=== PATIENT | female | born 2000 | race Caucasian/White ===

== ENCOUNTER 2023-06-18 22:53 | Emergency (ER) | payer BC, SELFPAY ==
[2023-06-18 22:57] VITALS: BP 193/98; PULSE 107; RESP 20; TEMP 36.8; O2SAT 100
[2023-06-18 23:16] VITALS: BP 124/82; O2SAT 99
--- NOTE | 2023-06-18 23:35 | ED.GENADULT ---
HPI - General Adult General Chief complaint: Headache Stated complaint: headache Time Seen by Provider: 06/18/23 23:06 Source: patient Mode of arrival: ambulatory Limitations: no limitations History of Present Illness HPI narrative: This is a 22-year-old female presents to the ED with chief complaint of frontal lobe headache x2 hours. Patient reports history of migraines with aura and feels that she is having the same today. Reports frontal headache, worse on the left. Reports it radiates behind the eye. Reports Kaleidoscope vision. states this is typical for her migraines Nurtec and sumatriptan did not help with the pain. Denies neck pain, fevers, chills, nausea, vomiting, numbness, weakness, speech change, vision loss. States she has had relief with Toradol and Ativan for migraines in the past whenever she has visited in ED. Related Data Allergies Allergy/AdvReac Type Severity Reaction Status Date / Time No Known Allergies Allergy Verified 06/18/23 22:56 Review of Systems Review of Systems: All systems as dictated in HPI Exam Narrative: GENERAL: Well-appearing, well-nourished, and in no acute distress. HEAD: Normocephalic, atraumatic. EYES: PERRLA and EOMI. ENT: Nares clear, no rhinorrhea or epistaxis. Mucous membranes moist. Oropharynx without tonsillar hypertrophy exudate or other lesions. photophobia present NECK: Supple. No adenopathy or masses. no meningeal signs CHEST: No respiratory distress. Clear to auscultation. No wheezes rales or rhonchi HEART: Regular rate and rhythm. No murmur heard. Normal peripheral pulses. ABDOMEN: Soft, nontender, nondistended, normal active bowel sounds. MSK: Normal range of motion. No edema. SKIN: Warm, dry, no rash. NEURO: Alert and oriented x3. No focal deficits. PSYCH: Normal mood and affect. Course Vital Signs Vital signs: Vital Signs Temperature 98.3 F 06/18/23 22:57 Pulse Rate 107 H 06/18/23 22:57 Respiratory Rate 20 06/18/23 22:57 Blood Pressure 193/98 H 06/18/23 22:57 Pulse Oximetry 100 06/18/23 22:57 Oxygen Delivery Room Air 06/18/23 22:57 Temperature 98.3 F 06/18/23 22:57 Pulse Rate 94 06/19/23 01:30 Respiratory Rate 14 06/19/23 01:30 Blood Pressure 128/84 06/19/23 01:30 Pulse Oximetry 99 06/19/23 01:30 Oxygen Delivery Room Air 06/18/23 22:57 Medical Decision Making MDM Narrative Medical decision making narrative: This is a 22-year-old female who presents to the ED with chief complaint of migraine headache symptoms. Vitals are normal. Exam is unremarkable. No neurologic deficits. No meningeal signs. Symptoms and presentation are consistent with typical pattern of headache for this patient. lab work is unremarkable. She improved greatly with migraine cocktail including fluids, Toradol, Compazine, Benadryl. Pt will be discharged in stable condition. Return precautions given and supportive measures discussed. Pt is understanding and agreeable with plan for discharge and follow-up with PCP/neurology Vital Signs Vital Signs: Vital Signs Temperature 98.3 F 06/18/23 22:57 Pulse Rate 107 H 06/18/23 22:57 Respiratory Rate 20 06/18/23 22:57 Blood Pressure 193/98 H 06/18/23 22:57 Pulse Oximetry 100 06/18/23 22:57 Oxygen Delivery Room Air 06/18/23 22:57 Temperature 98.3 F 06/18/23 22:57 Pulse Rate 94 06/19/23 01:30 Respiratory Rate 14 06/19/23 01:30 Blood Pressure 128/84 06/19/23 01:30 Pulse Oximetry 99 06/19/23 01:30 Oxygen Delivery Room Air 06/18/23 22:57 Lab Data 06/18/23 23:48 06/18/23 23:48 Labs: Lab Results 06/18/23 Range/Units 23:48 WBC 13.0 H (4.5-10.0) K/mm3 RBC 5.24 (4.2-5.4) M/mm3 Hgb 14.6 (12.0-15.0) g/dL Hct 44.9 (37.0-47.0) % MCV 85.7 (80-100) fl MCH 27.9 (26-34) pg MCHC 32.5 (32-36) g/dl RDW 12.0 (11.5-14.5) % Plt Count 445 H (150-375) k/mm3 MPV 10
[2023-06-18] MEDS: KETOROLAC 15 MG/ML VIAL (*BKC) IV PUSH (23:51)
[2023-06-18] MEDS: SODIUM CHLORIDE 0.9% IV 1,000 ML 999 ML IV CONT (23:51)
[2023-06-18] MEDS: diphenhydrAMINE HCl INJ 50 MG/ML VIAL 25 MG IV PUSH (23:52)
[2023-06-18] MEDS: PROCHLORPERAZINE EDISYLATE 10 MG/2 ML VIAL IV PUSH (23:52)
[2023-06-18 23:55] VITALS: BP 120/92; PULSE 87; RESP 14; O2SAT 100
[2023-06-18 23:56] LABS: Basophils Absolute Auto 0.1 K/mm3 (0.0-0.1); Basophils Percent Auto 0.5 % (0.2-1.2); Eosinophils Absolute Auto 0.1 K/mm3 (0-0.3); Eosinophils Percent Auto 0.6 % (0-4.4); Hematocrit 44.9 % (37.0-47.0); Hemoglobin 14.6 g/dL (12.0-15.0); Immature Granulocyte Absolute 0.04 K/mm3 (0.00-0.031); Immature Granulocyte Percent A 0.3 % (0-0.5); Lymphocytes Absolute Auto 5.27 K/mm3 (0.9-3.2); Lymphocytes Percent Auto 40.4 % (18.3-44.2); Mean Corpuscular HGB Conc 32.5 g/dl (32-36); Mean Corpuscular Hemoglobin 27.9 pg (26-34); Mean Corpuscular Volume 85.7 fl (80-100); Mean Platelet Volume 10.1 fl (7.4-10.4); Monocytes Absolute Auto 0.7 K/mm3 (0.1-0.6); Monocytes Percent Auto 5.5 % (2.6-8.5); Neutrophils Absolute Auto 6.9 K/mm3 (1.3-6.7); Neutrophils Percent Auto 52.7 % (45.5-73.1); Platelet Count Result 445 k/mm3 (150-375); Red Blood Count 5.24 M/mm3 (4.2-5.4)
[2023-06-19 00:07] LABS: Alanine Aminotransferase 19 U/L (6-35); Albumin Level 4.4 g/dL (3.5-5.1); Alkaline Phosphatase 65 U/L (38-126); Anion Gap 3 mmol/L (4-12); Aspartate Amino Transferase 25 U/L (14-36); Bilirubin,Total 0.4 mg/dL (0.2-1.3); Blood Urea Nitrogen 15 mg/dL (7-17); Calcium 9.4 mg/dL (8.4-10.2); Carbon Dioxide 31 mmol/L (22-30); Chloride 105 mmol/L (98-107); Estimated CRCL calculation 108 ml/min; Estimated Glomerular Filt Rate > 60; Glucose 114 mg/dL (65-110); Potassium 3.5 mmol/L (3.4-5.0); Sodium 139 mmol/L (137-145)
[2023-06-19 00:15] VITALS: BP 122/93; PULSE 84; RESP 13; O2SAT 97
[2023-06-19 01:01] VITALS: BP 133/91; PULSE 82; RESP 14; O2SAT 99
[2023-06-19 01:30] VITALS: BP 128/84; PULSE 94; RESP 14; O2SAT 99
== END 2023-06-19 01:31 | disposition home or self-care (01) ==
PROVIDERS: Emergency Provider Physician Assistant
DX: G43.909 Migraine, unspecified, not intractable, without status migrainosus (principal)
CPT/HCPCS: 36415; 80053; 81025; 85025; 96361; 96374; 96375; 99284; J0780; J1200; J1885; J7030

== ENCOUNTER 2023-06-24 20:43 | Emergency (ER) | payer BC, SELFPAY ==
[2023-06-24] VITALS (17 sets, daily range): BP systolic 114–131; BP diastolic 73–87; PULSE 73–102; RESP 12–25; TEMP 36.4; O2SAT 96–100
--- NOTE | ~2023-06-24 | CT_ITS ---
EXAMINATION: CT brain wo con DATE: 06/24/2023 22:48 INDICATION: headache . TECHNIQUE: Computed tomography (CT) of the head was performed without intravenous contrast. The mA wa s adjusted according to patient size. Iterative reconstruction technique was employed. The dose-lengt h product was 605.33 mGy-cm. COMPARISON: None. FINDINGS: No acute intracranial hemorrhage or extra-axial fluid collection. No hydrocephalus, mass, or herniation. No acute ischemic infarct. Unremarkable dural venous sinus attenuation. No acute osseous abnormality. The aerated spaces are clear. IMPRESSION: No acute intracranial process. Reviewed, dictated and finalized at location K.
--- NOTE | ~2023-06-24 | CT_ITS ---
CT ANGIOGRAM NECK AND HEAD History: Headache, blurry vision. Technique: Serial spiral axial images through the head and neck were obtained during arterial phase I V injection of 100 cc of Omnipaque 350. 3-D postprocessing and MIP images were then reconstructed on the remote workstation. Dose reduction technique was used on this scan by utilizing automated exposur e control and iterative reconstruction technique. The dose-length product (DLP) was 1052.21 mGy-cm. CTA neck findings: Bilateral vertebral arteries are patent. Bilateral common carotid, internal carot id, and external carotid arteries are patent. No large vessel occlusion. No stenosis or aneurysm. The proximal right internal carotid artery demonstrates 0% stenosis relative to the normal distal artery lumen diameter. The proximal left internal carotid artery demonstrates 0% stenosis relative to the n ormal distal artery lumen diameter. There are several groundglass nodules or opacities at the inferior aspect of the visualized right upp er lobe (series 5 images 1-7). CTA head findings: Distal vertebral arteries, basilar artery, and posterior cerebral arteries are pat ent. Distal internal carotid arteries, middle cerebral arteries, and anterior cerebral arteries are p atent. No large vessel occlusion. No stenosis or aneurysm. Impression: No vascular abnormalities. Several groundglass nodules or opacities in the visualized right upper lobe, suggestive of focal infe ctious process. Reviewed, dictated and finalized at location . Impression: No vascular abnormalities. Several groundglass nodules or opacities in the visualized right upper lobe, aden ggestive of focal infectious process.
--- NOTE | 2023-06-24 21:30 | ECG_ITS ---
Measurements Intervals [place] Rate: 82 P: 15 CO: 132 QRS: -15 QRSD: 94 T: -13 QT: 369 QTc: 432 Interpretive Statements SINUS RHYTHM MODERATE VOLTAGE CRITERIA FOR LVH, CONSIDER NORMAL VARIANT LOW-VOLTAGE QRS PRECORDIAL LEADS BASELINE ARTIFACT BORDERLINE ECG NO PREVIOUS ECG AVAILABLE FOR COMPARISON Electronically Signed On 06-25-2023 14:29:34 CDT by Elpidio Murray M.D.
[2023-06-24 21:47] LABS: Basophils Percent Auto 0.5 % (0.2-1.2); Eosinophils Absolute Auto 0.1 K/mm3 (0-0.3); Eosinophils Percent Auto 1.6 % (0-4.4); Hematocrit 42.6 % (37.0-47.0); Hemoglobin 14.2 g/dL (12.0-15.0); Immature Granulocyte Absolute 0.02 K/mm3 (0.00-0.031); Immature Granulocyte Percent A 0.2 % (0-0.5); Lymphocytes Absolute Auto 3.74 K/mm3 (0.9-3.2); Lymphocytes Percent Auto 45.7 % (18.3-44.2); Mean Corpuscular HGB Conc 33.3 g/dl (32-36); Mean Corpuscular Volume 83.9 fl (80-100); Mean Platelet Volume 9.8 fl (7.4-10.4); Monocytes Absolute Auto 0.9 K/mm3 (0.1-0.6); Monocytes Percent Auto 10.5 % (2.6-8.5); Neutrophils Absolute Auto 3.4 K/mm3 (1.3-6.7); Neutrophils Percent Auto 41.5 % (45.5-73.1); Platelet Count Result 407 k/mm3 (150-375); Red Blood Count 5.08 M/mm3 (4.2-5.4); White Blood Count 8.2 K/mm3 (4.5-10.0)
--- NOTE | 2023-06-24 22:10 | ED.HA ---
HPI - Headache General Chief Complaint: Headache Stated Complaint: vision loss, migraine Time Seen by Provider: 06/24/23 22:09 Related Data Allergies Allergy/AdvReac Type Severity Reaction Status Date / Time No Known Allergies Allergy Verified 06/24/23 22:13 Course Course Emergency Course: Patient updated on her workup. Resting comfortably Vital Signs Vital signs: Vital Signs Temperature 97.5 F L 06/24/23 20:50 Pulse Rate 86 06/24/23 20:50 Respiratory Rate 16 06/24/23 20:50 Blood Pressure 131/86 06/24/23 20:50 Pulse Oximetry 99 06/24/23 20:50 Oxygen Delivery Room Air 06/24/23 20:50 Temperature 97.5 F L 06/24/23 23:34 Pulse Rate 76 06/24/23 23:34 Respiratory Rate 18 06/24/23 23:34 Blood Pressure 118/87 06/24/23 23:34 Pulse Oximetry 99 06/24/23 23:34 Oxygen Delivery Room Air 06/24/23 20:50 MDM - Headache MDM Narrative Medical decision making narrative: Patient presents the emergency department for headache ongoing over the last week. Reporting associated dizziness and vision changes. She is afebrile and nontoxic appearing. Her vitals are stable. She is neurologically intact. CBC without leukocytosis. Metabolic panel does show some evidence of dehydration. Patient hydrated 2 L of IV fluids in the ED. Urine without evidence of infection. test is negative. CT brain without acute findings. CTA brain/carotid without acute occlusion, stenosis, aneurysm, or dissection. Patient's vision is not great in either eye. She does report she is getting a new prescription for her glasses. Patient updated on her workup. Resting comfortably. She has an appointment to see her neurologist in 2 days. She was given warnings to return to the ER Differential Diagnosis Differential diagnosis: Likely migraine, tension headache, subarachnoid hemorrhage and sinusitis Lab Data Attestation: I reviewed the patient's lab results. 06/24/23 21:39 06/24/23 21:39 Labs: Lab Results 06/24/23 06/24/23 Range/Units 21:39 22:12 WBC 8.2 (4.5-10.0) K/mm3 RBC 5.08 (4.2-5.4) M/mm3 Hgb 14.2 (12.0-15.0) g/dL Hct 42.6 (37.0-47.0) % MCV 83.9 (80-100) fl MCH 28.0 (26-34) pg MCHC 33.3 (32-36) g/dl RDW 12.0 (11.5-14.5) % Plt Count 407 H (150-375) k/mm3 MPV 9.8 (7.4-10.4) fl Immature Gran % (Auto) 0.2 (0-0.5) % Neut % (Auto) 41.5 L (45.5-73.1) % Lymph % (Auto) 45.7 H (18.3-44.2) % [place] % (Auto) 10.5 H (2.6-8.5) % Eos % (Auto) 1.6 (0-4.4) % Baso % (Auto) 0.5 (0.2-1.2) % Lymph # (Auto) 3.74 H (0.9-3.2) K/mm3 [place] # (Auto) 0.9 H (0.1-0.6) K/mm3 Eos # (Auto) 0.1 (0-0.3) K/mm3 Baso # (Auto) 0.0 (0.0-0.1) K/mm3 Abs Immat Gran (auto) 0.02 (0.00-0.031) K/mm3 Absolute Neuts (auto) 3.4 (1.3-6.7) K/mm3 Absolute Nucleated RBC 0.000 (0.0-0.012) K/mm3 Nucleated RBC % 0.0 (0.0-0.2) % Sodium 137 (137-145) mmol/L Potassium 4.0 (3.4-5.0) mmol/L Chloride 106 (98-107) mmol/L Carbon Dioxide 28 (22-30) mmol/L Anion Gap 3 L (4-12) mmol/L BUN 15 (7-17) mg/dL Creatinine 1.30 H (0.7-1.0) mg/dL Estim Creat Clear Calc 67 ml/min Estimated GFR 50 L (59 - ) Glucose 90 (65-110) mg/dL Calcium 8.9 (8.4-10.2) mg/dL Total Bilirubin 0.3 (0.2-1.3) mg/dL AST 26 (14-36) U/L ALT 23 (6-35) U/L Alkaline Phosphatase 62 (38-126) U/L Total Protein 7.0 (6.3-8.2) g/dL Albumin 4.1 (3.5-5.1) g/dL Urine Color Yellow (Yellow) Urine Appearance Clear (Clear) Urine pH 7.0 (5.0-9.0) Ur Specific [place] 1.028 (1.001-1.035) Urine Protein Negative (Negative) mg/dL Urine Glucose (UA) Negative (Negative) mg/dL Urine Ketones Negative (Negative) mg/dL Ur Blood (Man) Negative (Negative) Urine Nitrate Negative (Negative) Urine Bilirubin Negative (Negative) Urine Urobilinogen 1.0 (<2.0) mg/dL Leukocyte Esterase Rfl Ne
[2023-06-24] MEDS: SODIUM CHLORIDE 0.9% IV 1,000 ML 999 ML IV CONT ×2 (22:17→23:33)
[2023-06-24 22:18] LABS: Appearance Urine Clear (Clear); Bilirubin Urine Negative (Negative); Blood Urine Negative (Negative); Color Urine Yellow (Yellow); Glucose Urine UA Negative (Negative); Ketones Urine Negative (Negative); Leukocyte Esterase Ur Negative LEU/UL (Negative); Nitrate Urine Negative (Negative); Protein Urine Negative (Negative); Specific Grav Ur 1.028 (1.001-1.035)
[2023-06-24 22:28] LABS: Add Urine Microscopic? NO
[2023-06-24] MEDS: diphenhydrAMINE HCl INJ 50 MG/ML VIAL 25 MG IV PUSH (22:37)
[2023-06-24] MEDS: ACETAMINOPHEN 500 MG TABLET 1000 MG PO (22:38)
[2023-06-24] MEDS: METOCLOPRAMIDE HCL INJ 10 MG/2 ML VIAL IV PUSH (22:38)
[2023-06-24 23:03] LABS: Alanine Aminotransferase 23 U/L (6-35); Albumin Level 4.1 g/dL (3.5-5.1); Alkaline Phosphatase 62 U/L (38-126); Anion Gap 3 mmol/L (4-12); Aspartate Amino Transferase 26 U/L (14-36); Bilirubin,Total 0.3 mg/dL (0.2-1.3); Blood Urea Nitrogen 15 mg/dL (7-17); Calcium 8.9 mg/dL (8.4-10.2); Carbon Dioxide 28 mmol/L (22-30); Chloride 106 mmol/L (98-107); Estimated CRCL calculation 67 ml/min; Estimated Glomerular Filt Rate 50; Glucose 90 mg/dL (65-110); Sodium 137 mmol/L (137-145)
[2023-06-25] VITALS (16 sets, daily range): BP systolic 97–132; BP diastolic 63–93; PULSE 72–88; RESP 15–26; O2SAT 91–100
== END 2023-06-25 02:23 | disposition home or self-care (01) ==
PROVIDERS: Student in an Organized Health Care Education/Training Program; Emergency Provider Physician Assistant
DX: R51.9 Headache, unspecified (principal); E86.0 Dehydration
CPT/HCPCS: 36415; 70450; 70496; 70498; 80053; 81003; 81025; 85025; 93005; 96361; 96374; 96375; 99284; A9270; J1200; J2765; J7030; Q9967

== ENCOUNTER 2023-10-12 00:16 | Emergency (ER) | payer BC, SELFPAY ==
--- NOTE | ~2023-10-12 | CT_ITS ---
EXAMINATION: CT abdomen pelvis w con DATE: 10/12/2023 03:09 INDICATION: Left flank pain for 3 days. Hematuria. TECHNIQUE: Computed tomography (CT) of the abdomen and pelvis was performed with 100 CC Omnipaque 350 intravenous contrast. Automated exposure control and iterative reconstruction technique were employe d. Exam dose: 1401.95 mGy-cm total exam DLP. COMPARISON: None. FINDINGS: The lung bases are clear. Normal heart size. No pericardial or pleural effusion. The gallbladder is contracted. No pericholecystic fluid or fat stranding. No bile duct or pancreatic duct dilatation. No hepatic, splenic, pancreatic, adrenal or renal space occupying mass lesion. No urinary tract calcu william or hydroureteronephrosis. The urinary bladder, uterus and adnexal areas are unremarkable. Normal caliber of the abdominal aorta. No intraperitoneal or retroperitoneal or pelvic mass lesion or adenopathy or ascites. Normal appendix. No bowel obstruction or intraperitoneal free air. Included skeletal structures are unremarkable. IMPRESSION: No significant abnormality Reviewed, dictated and finalized at Location [facility]. Reviewed, dictated and finalized at location A. IMPRESSION: No significant abnormality
[2023-10-12 00:19] VITALS: BP 156/109; PULSE 111; RESP 18; TEMP 36.4; O2SAT 99
[2023-10-12 00:31] LABS: Basophils Absolute Auto 0.1 K/mm3 (0.0-0.1); Basophils Percent Auto 0.5 % (0.2-1.2); Eosinophils Absolute Auto 0.1 K/mm3 (0-0.3); Eosinophils Percent Auto 1.1 % (0-4.4); Hematocrit 43.3 % (37.0-47.0); Hemoglobin 14.4 g/dL (12.0-15.0); Immature Granulocyte Absolute 0.03 K/mm3 (0.00-0.031); Immature Granulocyte Percent A 0.3 % (0-0.5); Lymphocytes Absolute Auto 4.68 K/mm3 (0.9-3.2); Lymphocytes Percent Auto 42.5 % (18.3-44.2); Mean Corpuscular HGB Conc 33.3 g/dl (32-36); Mean Corpuscular Hemoglobin 28.2 pg (26-34); Mean Corpuscular Volume 84.7 fl (80-100); Mean Platelet Volume 10.2 fl (7.4-10.4); Monocytes Absolute Auto 0.8 K/mm3 (0.1-0.6); Neutrophils Absolute Auto 5.4 K/mm3 (1.3-6.7); Neutrophils Percent Auto 48.6 % (45.5-73.1); Platelet Count Result 418 k/mm3 (150-375); Red Blood Count 5.11 M/mm3 (4.2-5.4); Red Cell Distribution Width 12.1 % (11.5-14.5)
[2023-10-12 00:39] LABS: Appearance Urine Clear (Clear); Bacteria Urine None Seen /hpf; Bilirubin Urine Negative (Negative); Blood Urine 1+ (Negative); Color Urine Yellow (Yellow); Glucose Urine UA Negative (Negative); Ketones Urine Negative (Negative); Leukocyte Esterase Ur Negative LEU/UL (Negative); Nitrate Urine Negative (Negative); Non Pathogenic Casts 0-2; Protein Urine Negative (Negative); RBC Urine 0-2 /hpf (0-2); Specific Grav Ur 1.011 (1.001-1.035); Squamous Epithelial Cell Urine None Seen /hpf (Few); Urobilinogen Urine 0.2 mg/dL (<2.0); WBC Urine 0-5 /hpf (0-3); pH Urine 5.5 (5.0-9.0)
[2023-10-12 00:47] LABS: Alanine Aminotransferase 17 U/L (6-35); Albumin Level 4.5 g/dL (3.5-5.1); Alkaline Phosphatase 68 U/L (38-126); Anion Gap 11 mmol/L (4-12); Aspartate Amino Transferase 23 U/L (14-36); Bilirubin,Total 0.3 mg/dL (0.2-1.3); Blood Urea Nitrogen 13 mg/dL (7-17); Carbon Dioxide 25 mmol/L (22-30); Chloride 103 mmol/L (98-107); Estimated CRCL calculation 90 ml/min; Estimated Glomerular Filt Rate > 60; Glucose 94 mg/dL (65-110); Potassium 3.5 mmol/L (3.4-5.0); Sodium 139 mmol/L (137-145)
[2023-10-12 00:49] LABS: Add Urine Microscopic? YES
--- NOTE | 2023-10-12 03:07 | PC.NURSE ---
Pt to CT at this time.
--- NOTE | 2023-10-12 05:15 | ED.GENADULT ---
HPI - General Adult General Chief complaint: Abdominal Pain Stated complaint: left flank pain/abd pain Time Seen by Provider: 10/12/23 01:58 History of Present Illness HPI narrative: This is a 22-year-old female presenting ED with 6 days of left-sided flank pain. It is a sharp pain that wraps around her left side. It is severe. Comes and goes. She has never had pain like this before she has no exacerbating factors. She has dysuria and urinary urgency. Denies fevers nausea vomiting chest pain difficulty breathing. Related Data Allergies Allergy/AdvReac Type Severity Reaction Status Date / Time No Known Allergies Allergy Verified 06/24/23 22:13 Exam Narrative: APPEARANCE: No apparent distress. Head: atraumatic. EYES: EOMI, NOSE: Atraumatic NECK: Trachea midline RESPIRATORY: No increased rate of breathing CARDIOVASCULAR: RRR, ABDOMINAL: Non-distended soft, nontender no guarding rebound, no CVA tenderness MUSCULOSKELETAl: No obvious deformities NEURO: Alert. Moving 4/4 extremities SKIN:: Warm, dry. Normal color PSYCHIATRIC: Normal affect Course Vital Signs Vital signs: Vital Signs Temperature 97.6 F 10/12/23 00:19 Pulse Rate 111 H 10/12/23 00:19 Respiratory Rate 18 10/12/23 00:19 Blood Pressure 156/109 H 10/12/23 00:19 Pulse Oximetry 99 10/12/23 00:19 Oxygen Delivery Room Air 10/12/23 00:19 Temperature 97.6 F 10/12/23 00:19 Pulse Rate 111 H 10/12/23 00:19 Respiratory Rate 18 10/12/23 00:19 Blood Pressure 156/109 H 10/12/23 00:19 Pulse Oximetry 99 10/12/23 00:19 Oxygen Delivery Room Air 10/12/23 00:19 Medical Decision Making [facility] Narrative Medical decision making narrative: -Course: 22-year-old female presenting left-sided flank pain. Laboratory studies unremarkable. Urine not indicative infection. CT abdomen pelvis contrast not show any acute findings. Patient was monitored for several hours and she is resting comfortably in bed with no pain. Patient will be discharged follow-up with primary care physician. Given return precautions -DDX includes but is not limited to: Kidney stone, muscle pain, urinary tract infection, colitis, ovarian cyst -Co-morbidities complicating care: Obesity -Social determinants of health: RN, denies drugs or alcohol -Independent interpretation of studies: Labs reviewed Stat rad interpretation of CT-no acute findings UA not indicative infection -Shared decision making / Disposition: Discharged Vital Signs Vital Signs: Vital Signs Temperature 97.6 F 10/12/23 00:19 Pulse Rate 111 H 10/12/23 00:19 Respiratory Rate 18 10/12/23 00:19 Blood Pressure 156/109 H 10/12/23 00:19 Pulse Oximetry 99 10/12/23 00:19 Oxygen Delivery Room Air 10/12/23 00:19 Temperature 97.6 F 10/12/23 00:19 Pulse Rate 111 H 10/12/23 00:19 Respiratory Rate 18 10/12/23 00:19 Blood Pressure 156/109 H 10/12/23 00:19 Pulse Oximetry 99 10/12/23 00:19 Oxygen Delivery Room Air 10/12/23 00:19 Lab Data 10/12/23 00:24 10/12/23 00:24 Labs: Lab Results 10/12/23 10/12/23 Range/Units 00:24 00:31 WBC 11.0 H (4.5-10.0) K/mm3 RBC 5.11 (4.2-5.4) M/mm3 Hgb 14.4 (12.0-15.0) g/dL Hct 43.3 (37.0-47.0) % MCV 84.7 (80-100) fl MCH 28.2 (26-34) pg MCHC 33.3 (32-36) g/dl RDW 12.1 (11.5-14.5) % Plt Count 418 H (150-375) k/mm3 MPV 10.2 (7.4-10.4) fl Immature Gran % (Auto) 0.3 (0-0.5) % Neut % (Auto) 48.6 (45.5-73.1) % Lymph % (Auto) 42.5 (18.3-44.2) % [place] % (Auto) 7.0 (2.6-8.5) % Eos % (Auto) 1.1 (0-4.4) % Baso % (Auto) 0.5 (0.2-1.2) % Lymph # (Auto) 4.68 H (0.9-3.2) K/mm3 [place] # (Auto) 0.8 H (0.1-0.6) K/mm3 Eos # (Auto) 0.1 (0-0.3) K/mm3 Baso # (Auto) 0.1 (0.0-0.1) K/mm3 Abs Immat Gran (auto) 0.03 (0.00-0.031) K/mm3 Absolute Neuts (auto) 5.4 (1.3-6.7) K/mm3 Absolute Nucleated RBC 0.000 (0.0-0.012) K/
[2023-10-12 05:32] VITALS: BP 142/87; PULSE 91; RESP 17; O2SAT 99
== END 2023-10-12 05:33 | disposition home or self-care (01) ==
PROVIDERS: Emergency Provider Emergency Medicine
DX: R10.9 Unspecified abdominal pain (principal)
CPT/HCPCS: 36415; 74177; 80053; 81001; 81025; 85025; 99284; Q9967